=== PATIENT | female | born 1975 | race Caucasian/White ===

== ENCOUNTER 2017-07-24 08:51 | Day surgery (SDC) | payer BC ==
[~2017-07-24 08:51] MED LIST: Bupivacaine 0.5% 50 ML MDV ONE; Lidocaine 1% with EPINEPHrine 1:100,000 50 ML MDV ONE; Midazolam 1 MG/ML 2 ML SDV ONE; Propofol 200 MG/20 ML SDV ONE; fentaNYL 100 MCG/2 ML SDV ONE
[2017-07-24] MEDS ORDERED: Sodium Chloride 0.9% 1,000 ML IV SCH (09:30)
[2017-07-24] MEDS ORDERED: Lactated Ringers 1,000 ML IV SCH (09:30)
[2017-07-24] MEDS ORDERED: ceFAZolin 2 GM in Premix Bag 1 BAG IV ONE (10:00)
--- NOTE | 2017-07-24 13:44 | OR ---
DATE OF PROCEDURE: 07/24/2017 PROCEDURE: Excision, left breast cyst. COMPLICATIONS: None. DEVELOPER SUPPORT ENGINEER: None. PATHOLOGY: Left breast cyst, opened on back table. INDICATIONS: A pleasant 42-year-old female who has a simple cyst in the left breast. This has been imaged via ultrasound and mammogram and was felt to be benign. We discussed with the patient the options, which the recommended course typically is aspiration with pathology, which the patient has declined, due to pain and discomfort. Therefore, we removed this today. We discussed risks, benefits, alternatives, limitations including, but not limited to infection, bleeding, false positives, false negatives, and the possibility that this may harbor a malignancy. We also discussed numbness of the nipple, ischemia of the nipple, and cosmetic deformity associated with surgery. They understand these risks and wished to proceed. PROCEDURE IN DETAIL: The patient was placed in supine position. A curvilinear incision was made essentially at the bottom half of the nipple. This was elevated using electrocautery. Careful attention was made not to make the nipple avascular. This cyst was encountered and was mobilized using a combination of sharp, blunt, and electrocautery dissection. The cyst was entered slightly, and there was some spillage. Once this was mobilized, the cavity was then checked and inspected for bleeding, which none was noted. The wound was then closed with 2 layers of 3-0 Vicryl and a 4-0 Vicryl, and Dermabond was applied. The patient tolerated the procedure well. Daniel Chapman MD /[id number]
== END 2017-07-24 13:22 | disposition home or self-care (01) ==
LOC: JP.SDS 08:51
PROVIDERS: ATTEND Surgery
DX: N60.32 Fibrosclerosis of left breast (principal); N60.02 Solitary cyst of left breast; N60.82 Other benign mammary dysplasias of left breast; N61.0 Mastitis without abscess
CPT/HCPCS: 19120; 88305; J0690; J2250; J2704; J3010; J7040